=== PATIENT | female | born 1985 | race Caucasian/White ===

== ENCOUNTER → 2021-12-06 | Outpatient (CLI) | payer BC ==
[2021-12-06 07:56] LABS: EOSINOPHILS % 1.7 % (0.0-5.0); HEMATOCRIT. 38.9 % (36.0-48.0); HEMOGLOBIN. 13.4 g/dL (12.0-16.0); LYMPHOCYTES % 27.7 % (20.0-50.0); MEAN CORPUSCULAR HEMOGLOBIN 28.9 pg (28.0-32.0); MEAN CORPUSCULAR VOLUME 83.6 fL (81.0-99.0); MEAN PLATELET VOLUME 9.3 fl (7.4-10.4); MONOCYTES % 7.2 % (2.0-8.0); NEUTROPHILS % 62.4 % (40.0-76.0); PLATELET 218 x1000/uL (130-400); RED BLOOD CELL COUNT 4.65 mill/uL (4.2-5.4); RED CELL DISTRIBUTION WIDTH 12.6 % (11.6-14.6)
[2021-12-06 07:58] LABS: CHLORIDE 106 mEq/L (98-107)
[2021-12-06 08:13] LABS: HDL CHOLESTEROL 51 mg/dL (40-59); LDL CHOLESTEROL 113 mg/dL (5-100)
== END | disposition home or self-care (01) ==
LOC: LAB 07:28
PROVIDERS: ATTEND Family Medicine
DX: Z00.00 Encounter for general adult medical examination without abnormal findings (principal)
CPT/HCPCS: 36415; 80053; 80061; 83036; 84443; 85025

== ENCOUNTER → 2022-05-18 | Outpatient (CLI) | payer BC | END | disposition home or self-care (01) | LOC: RAD 10:06 | PROVIDERS: ATTEND Family Medicine | DX: R07.81 Pleurodynia (principal) | CPT/HCPCS: 71100 ==

== ENCOUNTER → 2022-07-19 | Outpatient (CLI) | payer BC ==
[2022-07-21 05:10] LABS: FOLICLE STIMULATING HORMONE 5.9 mIU/mL (.); PROLACTIN 8.2 ng/mL (4.8-23.3)
== END | disposition home or self-care (01) ==
LOC: LAB 14:09
PROVIDERS: ATTEND Obstetrics & Gynecology Gynecology
DX: N97.9 Female infertility, unspecified (principal)
CPT/HCPCS: 36415; 83001; 84146; 84443

== ENCOUNTER → 2022-08-10 | Outpatient (CLI) | payer BC ==
[~2022-08-10] MED LIST: IOHEXOL-300 50 ML BOTTLE IV ONE
== END | disposition home or self-care (01) ==
LOC: RAD 10:09
PROVIDERS: ATTEND Obstetrics & Gynecology Gynecology
DX: N97.9 Female infertility, unspecified (principal); Z79.899 Other long term (current) drug therapy
CPT/HCPCS: 58340; 74740; 76830; 76856; Q9967; Z7610

== ENCOUNTER → 2022-10-02 | Outpatient (CLI) | payer BC ==
[2022-10-05 07:08] LABS: NEISSERIA GONORRHOEAE NAA Negative (Negative)
== END | disposition home or self-care (01) ==
LOC: LAB 11:08
PROVIDERS: ATTEND Family Medicine
DX: Z20.2 Contact with and (suspected) exposure to infections with a predominantly sexual mode of transmission (principal)
CPT/HCPCS: 87491; 87591

== ENCOUNTER → 2023-06-05 | Outpatient (CLI) | payer BC ==
[2023-06-07 13:21] LABS: BASOPHILS % 0.6 % (0.0-2.0); EOSINOPHILS % 0.5 % (0.0-5.0); HEMATOCRIT. 38.5 % (36.0-48.0); HEMOGLOBIN. 13.5 g/dL (12.0-16.0); LYMPHOCYTES % 19.7 % (20.0-50.0); MEAN CORPUSCULAR HEMOGLOBIN 29.9 pg (28.0-32.0); MEAN CORPUSCULAR HGB CONC 35.1 g/dL (31.0-37.0); MEAN CORPUSCULAR VOLUME 85.3 fL (81.0-99.0); MEAN PLATELET VOLUME 8.9 fl (7.4-10.4); MONOCYTES % 5.9 % (2.0-8.0); NEUTROPHILS % 73.3 % (40.0-76.0); PLATELET 258 x1000/uL (130-400); RED BLOOD CELL COUNT 4.51 mill/uL (4.2-5.4); RED CELL DISTRIBUTION WIDTH 12.1 % (11.6-14.6); WHITE BLOOD COUNT 9.6 x1000/uL (4.5-11.0)
[2023-06-07 14:12] LABS: B-HCG QUANTITATIVE 118165 mIU/mL (<3)
[2023-06-07 14:21] LABS: HEPATITIS A AB IGM NEGATIVE (Negative)
== END | disposition home or self-care (01) ==
LOC: LAB 15:01
PROVIDERS: ATTEND Obstetrics & Gynecology Gynecology
DX: Z11.4 Encounter for screening for human immunodeficiency virus [HIV] (principal)
CPT/HCPCS: 36415; 82947; 84702; 85025; 86705; 86709; 86765; 86780

== ENCOUNTER → 2023-06-13 | Outpatient (CLI) | payer BC | END | disposition home or self-care (01) | LOC: US 07:37 | PROVIDERS: ATTEND Obstetrics & Gynecology Gynecology | DX: O26.849 Uterine size-date discrepancy, unspecified trimester (principal); Z3A.01 Less than 8 weeks gestation of pregnancy | CPT/HCPCS: 76801 ==

== ENCOUNTER → 2023-08-16 | Outpatient (CLI) | payer BC | END | disposition home or self-care (01) | LOC: US 07:41 | PROVIDERS: ATTEND Obstetrics & Gynecology Gynecology | DX: Z34.00 Encounter for supervision of normal first pregnancy, unspecified trimester (principal); Z3A.17 17 weeks gestation of pregnancy | CPT/HCPCS: 76805 ==

== ENCOUNTER → 2023-10-02 | Outpatient (CLI) | payer BC | END | disposition home or self-care (01) | LOC: US 08:47 | PROVIDERS: ATTEND Obstetrics & Gynecology Gynecology | DX: Z34.90 Encounter for supervision of normal pregnancy, unspecified, unspecified trimester (principal); Z3A.23 23 weeks gestation of pregnancy | CPT/HCPCS: 76805 ==

== ENCOUNTER → 2023-10-28 | Outpatient (CLI) | payer BC ==
[2023-10-28 11:09] LABS: BASOPHILS % 0.5 % (0.0-2.0); EOSINOPHILS % 0.8 % (0.0-5.0); HEMOGLOBIN. 11.5 g/dL (12.0-16.0); LYMPHOCYTES % 14.8 % (20.0-50.0); MEAN CORPUSCULAR HEMOGLOBIN 29.6 pg (28.0-32.0); MEAN CORPUSCULAR HGB CONC 33.9 g/dL (31.0-37.0); MEAN CORPUSCULAR VOLUME 87.5 fL (81.0-99.0); MEAN PLATELET VOLUME 9.5 fl (7.4-10.4); NEUTROPHILS % 77.9 % (40.0-76.0); PLATELET 220 x1000/uL (130-400); RED BLOOD CELL COUNT 3.88 mill/uL (4.2-5.4); RED CELL DISTRIBUTION WIDTH 12.9 % (11.6-14.6); WHITE BLOOD COUNT 13.8 x1000/uL (4.5-11.0)
== END | disposition home or self-care (01) ==
LOC: LAB 08:35
PROVIDERS: ATTEND Obstetrics & Gynecology Gynecology
DX: Z34.02 Encounter for supervision of normal first pregnancy, second trimester (principal); Z3A.17 17 weeks gestation of pregnancy
CPT/HCPCS: 36415; 82950; 85025